=== PATIENT | male | born 1995 | race Caucasian/White ===

== ENCOUNTER 2018-10-27 08:53 | Day surgery (SDC) | payer MEDICAID, SELFPAY ==
[2018-10-27] VITALS (7 sets, daily range): BP systolic 128–154; BP diastolic 87–104; PULSE 60–90; RESP 16; TEMP 36.6–37.1; O2SAT 94–100; BMI 30.9
[2018-10-27] MEDS: Oxymetazoline 0.05% 1 SPRAY SPRAY.BTL 15 SPRAY (10:40)
[2018-10-27] MEDS: Mupirocin Ointment 22gm Tube 1 APPLIC (10:40)
[2018-10-27] MEDS: HYDROcodone Bitartrate/Apap 5/325 Tablet PO (12:20)
--- NOTE | 2018-10-27 13:21 | DCINST_ITS ---
You will use the following diet at home:: Regular Discharge Activity: - - No noseblowing. Additional Activity Instructions:: Start saline irrigation 3x/day on 10/28/18 Allergies/Adverse Reactions: Allergies No Known Allergies Allergy (Verified 10/20/18 13:56) Medications to take at Discharge Albuterol Inhaler [Ventolin Hfa (SP)] 1 - 2 puff INHALATION Q4H PRN PRN 10/20/18 Lactobacillus Combination No.4 [Probiotic] 1 each PO DAILY 10/20/18 Loratadine [Claritin] 10 mg PO DAILY 10/20/18 Multivitamin [Multiple Vitamins] 1 each PO DAILY 10/20/18 Primary Care Physician: Nic Rausch MD [Primary Care Provider] - Test Results: Test results from this visit will be discussed in further detail at your follow- up appointment, if applicable.
--- NOTE | 2018-10-27 13:44 | OP.PCM_ITS ---
Report of Operation Date of Procedure: 10/27/18 Pre-Operative Diagnosis: nasal airway obstruction. deviated septum. inferior turbinate hypertrophy Post-Operative Diagnosis: same Surgery/Procedure Performed:: Septoplasty. Submucous resection of the inferior turbinates bilaterally Type of Anesthesia:: General Anesthesiologist: Jeff Segovia Estimated Blood Loss (mL): minimal Description of Procedure: The patient was taken to the OR on 10/27/18. He was placed in the supine position on the operating room table. He was given sufficient general anesthesia. The head of bed was elevated 30 degrees. The face was draped steriley. 1% lidocaine with epinephrine ([id number]) was injected into the columella, septum, nasal floor bilaterally and anterior aspect of the inferior turbinates. After sufficient vasoconstriction, a right hemitrasfixtion incision was made with a [address] was established on the left quadrangular cartilage and the mucoperichondrial flap was elevated with a freer elevator. An anterior and posterior tunnel was created this way. I made and incision in the quadrangular cartilage and then elevated the mucoperichondrium off of the septum on the right side with a freer elevator. The deviated portion of the quadrangular cartilage was removed with a D knife. The deviated mary septum was removed using open Montague Boyd forceps. The maxillary crest was removed with a hammer and chisel. This provided excellent mobility of the septum. Hemostasis was achieved with afrin pledgets and florence. An incision was placed at the anterior aspect of inferior turbinate on the right side. A submucosal plane was established with a [place] elevator. Submucous resection was carried out with a microdebrider. The incision was closed with 4-0 chromic. Next, an incision was placed at the anterior aspect of inferior turbinate on the left side. A submucosal plane was established with a [place] elevator. Submucous resection was carried out with a microdebrider. The incision was closed with 4-0 chromic. Next, the hemitransfixtion was closed with interrupted 4-0 chromic. Bain splints were applied to each side of the septum and sewn through and through with 3-0 silk. Florence was placed on the incision. The patient was then awoken and brought to the recovery room in stable condition. Blood loss minimal, replacement none. Sponge, needle and instrument count were correct at the end of the procedure.
--- NOTE | 2018-10-28 | SEP_PTH ---
PATIENT: LATIA BACA [place] [facility] [id number] AGE/SX: 22/M ROOM: RE10/27/[address]: Dr. Blu Trimble MD : [id number] BED: DIS: 10/27/2018 SPEC #: [id number] RECD: 10/28/18 09:30 STATUS: TERRY RACHAEL #: [id number] MALINDA: 10/28/18 00:[address]: Blu Trimble DEPT: SURGICAL PATHOLOGY RECD BY: John Rice ENTERED: 10/28/18 10:32 SP TYPE: SEPTUM OTHR DR: Dr. Nic Rausch MD Tissues: Nasal septum, NOS Procedures: Decalcification bone/plaque Surgery Specimen Level III HEADER OPERATION: Septoplasty, turbinate resection PRE-OP DIAGNOSIS: Nasal airway obstruction; turbinate hypertrophy TISSUE SUBMITTED: Nasal septum and cartilage MICROSCOPIC DIAGNOSIS Nasal septum and cartilage, septoplasty: Fragments of hyaline cartilage and bone with mild reactive change. AM:billy 10/31/18 MICROSCOPIC DESCRIPTION Slides are reviewed. GROSS DESCRIPTION Received in fixative is one container labeled with the patient's name and designated nasal septum and cartilage. The specimen consists of multiple garcia-white flattened portions of bone and cartilage that in aggregate measure 2 x 1.8 x 0.4 cm. Tumbling Machine Operator sections are submitted in one cassette after decalcification. / CE:billy 10/28/18 TC:5 CPT: 42672, 90534
== END 2018-10-27 13:54 | disposition home or self-care (01) ==
LOC: SDC 08:55 → AC 09:21
PROVIDERS: Family Provider Family Medicine; PCP Family Medicine; Referring Provider Otolaryngology; Visit Provider Otolaryngology
PROC: (CPT 30520; principal; 2018-10-27 10:10)
DX: J34.3 Hypertrophy of nasal turbinates (principal); J34.2 Deviated nasal septum; R09.81 Nasal congestion; J45.909 Unspecified asthma, uncomplicated; G47.30 Sleep apnea, unspecified; F17.210 Nicotine dependence, cigarettes, uncomplicated; Z79.51 Long term (current) use of inhaled steroids
CPT/HCPCS: 30140; 30520; 88304; 88311; J7120; J2405